=== PATIENT | female | born 1990 | race Caucasian/White ===

== ENCOUNTER 2018-06-28 00:10 | Emergency (ER) | payer OTHER, SELFPAY ==
[2018-06-28 00:15] VITALS: BP 104/68; PULSE 69; RESP 18; TEMP 36.7; O2SAT 97; BMI 25.9
--- NOTE | 2018-06-28 00:18 | ED.RN ---
PT REPORTS PRESSURE IN CHEST ALL DAY TODAY. THIS RN CALLED FOR EKG. MONITOR PLACED.
[2018-06-28 00:19] VITALS: O2SAT 98
--- NOTE | 2018-06-28 00:28 | EKG12_ITS ---
Test Reason : Blood Pressure : / mmHG Vent. Rate : 069 BPM Atrial Rate : 069 BPM P-R Int : 152 ms QRS Dur : 084 ms QT Int : 386 ms P-R-T Axes : 064 074 048 degrees QTc Int : 413 ms Normal sinus rhythm Normal ECG Confirmed by EUGENIA DEAL, ROLANDO ([id number]), editor in chief CARA HIGGINS ([id number] on 06/28/2018 10:04:35 AM Referred By: ADARSH Confirmed By:ROLANDO BELLO MD
--- NOTE | 2018-06-28 00:28 | RAD_ITS ---
STUDY: X-RAY CHEST REASON FOR EXAM: Female, 27 years old. Cough and chest pressure TECHNIQUE: PA and lateral views of the chest. COMPARISON: 08/14/2017 FINDINGS: The lungs are clear and expanded. There is no demonstrated pleural abnormality. Normal size heart. Normal mediastinum and jose. Normal visualized pulmonary arteries. Normal visualized aortic arch and descending thoracic aorta. Normal visualized thoracic spine. Normal visualized ribs, clavicles, and shoulders. There is no demonstrated abnormality of the visualized soft tissue structures of the upper abdomen. RAD/Chest PA and Lateral IMPRESSION: Normal x-ray examination of the chest. Electronically Signed: Guilherme Rubio MD at 2:19 EDT Tel , Service support ,
--- NOTE | 2018-06-28 00:31 | ED.VISSUMM ---
- ER Visit Summary Date of Service: 06/28/18 Chief Complaint: Cough, left rib pain History of Present Illness: The patient is a 27 F with cough for the past 2 months. She had been having a dry cough but it is now becoming more productive of white to yellow sputum. She denies fever or chills. She presents today because of sharp left lower rib pain for the past 2 days. She does note some central chest heaviness tonight as well. She does report ill contacts in her family with similar symptoms. Physical Examination: Vital signs are normal. Patient sitting upright in bed no acute distress. Head neck examination is normal. Heart is regular rate and rhythm. Lung sounds are clear. She does have reproducible tenderness of the left anterior lower ribs and posteriorly or over the inferior left ribs. Abdomen is soft and nontender. Skin examination reveals no rash or lesions. Test Results: EKG is sinus at 69 with no sign of acute ischemia. CBC and chemistry studies are normal. Troponin is negative. D-dimer is normal. test negative. Two-view chest x-ray per my read is unremarkable with no evidence of infiltrate. There is no obvious displaced rib fracture. Emergency Department Course and Treatment: Patient was given IV fluids and Toradol. On repeat evaluation she is resting comfortably. I discussed test results with her. She will be treated with a course of Zithromax in light of the fact that she has had this cough for 2 months. She will be given Tessalon Perles and naproxen as well. Treatment Plan: [] Disposition: Discharge Impression: 1. Bronchitis 2. Left chest wall strain This note was generated with [employer] dictation software. It may contain incorrect words, spelling, and punctuation that were not noted in review of the chart prior to signing ED Disposition - Plan for ED Patient: Chief Complaint: Cough Referrals: Care Physician,No Primary [NON-STAFF] -
[2018-06-28] MEDS: Ketorolac 30 MG/ML Syringe IV (00:48)
[2018-06-28] MEDS: 0.9% Normal Saline 1,000 ML 150 ML IV (00:48)
[2018-06-28 00:56] LABS: Absolute Lymphocyte Count 3.36 X10^3/ul (0.83-4.51); Absolute Neutrophil Count 3.7 X10^3/uL (2.0-7.7); Basophil# 0.03 X10^3/uL; Basophil% 0.4 % (0-1); Eosinophil# 0.24 X10^3/uL; Hematocrit 36.1 % (37-47); Hemoglobin 12.3 g/dl (12.0-15.0); Lymphocyte # 3.36 X10^3/ul (4.0); Lymphocyte % 42.1 % (19-41); Mean Corp Hgb Conc 34.1 g/gl (32-36); Mean Corpuscular Hgb 31.7 pg (27.0-32.0); Mean Platelet Vol. 10.3 fl (6.2-12.0); Monocyte# 0.69 X10^3/uL; Monocyte% 8.6 % (0-10); Neutrophil # 3.67 X10^3/uL (2.7-7.7); Neutrophil % 45.9 % (47-70); Platelet Count 258 K/mm3 (150-450); RBC Distribution Width SD 39.9 fl (35.1-43.9); Red Blood Count 3.88 M/mm3 (4.2-5.4)
[2018-06-28 00:57] LABS: POSITIVE COUNT NO; POSITIVE DIFFERENTIAL NO; POSITIVE MORPHOLOGY NO
[2018-06-28 01:07] LABS: D-Dimer Quantitative (DVT/PE) 0.46 FEU/ug/m (0.27-0.49)
[2018-06-28 01:13] LABS: BUN 15 mg/dL (7-18); BUN/Creat Ratio 21.3 RATIO (10-20); Calcium,Total 8.4 mg/dL (8.5-10.1); Chloride 106 mmol/L (98-107); EST Glomerular Filtration Rate 106 mL/min (>60); Est Glom Filt Rate - Afr Amer 128 mL/min (>60); Estimated Creatinine Clearance 99.86 ml/min; Glucose 93 mg/dL (74-106); Potassium 3.8 mmol/L (3.5-5.1); Sodium Level 140 mmol/L (136-145)
[2018-06-28 01:14] LABS: Anion Gap 4 (5-15)
[2018-06-28 01:42] LABS: Pregnancy, Serum, hCG Quali. NEGATIVE Negative (0-9 Nonpreg)
--- NOTE | 2018-06-28 01:57 | ED.DEP ---
ED Disposition - Plan for ED Patient: Disposition: Home or Assisted Living Chief Complaint: Cough Instructions: Acute Bronchitis, ED Strain Chest Wall Prescriptions: Azithromycin [Zithromax] 250 mg PO DAILY #4 tablet Benzonatate [Tessalon Perle] 200 mg PO TID PRN PRN #20 capsule PRN Reason: Cough Naproxen [Naprosyn] 500 mg PO BID PRN PRN #20 tablet PRN Reason: Pain Referrals: Darius Carreon III, MD [STAFF PHYSICIAN] - As Needed
[2018-06-28] MEDS: Azithromycin 250 MG Tablet 500 MG PO (02:07)
[2018-06-28] MEDS: Benzonatate 100 MG Capsule 200 MG PO (02:07)
[2018-06-28 02:12] VITALS: BP 104/67; PULSE 74; RESP 15; O2SAT 99
--- NOTE | 2018-06-28 02:13 | ED.RN ---
PT GIVEN WRITTEN AND VERBAL DISCHARGE INSTRUCTIONS AND HOME GOING PRESCRIPTIONS. PT VERBALIZES UNDERSTANDING AND DENIES ANY FURTHER QUESTIONS. PT IV D/C AND COVERED WITH 2X2 GAUZE AND PAPER TAPE. PT DRESSES SELF AND AMBULATES OUT OF DEPT BY SELF.
--- NOTE | 2018-06-29 14:38 | CM.ED ---
ED CALLBACK: Follow-up call placed to the patient. Patient states I'm doing good and states that she has received her prescriptions and is taking them. Patient denies any questions or needs.
== END 2018-06-28 02:14 | disposition home or self-care (01) ==
PROVIDERS: Emergency Provider Emergency Medicine; Family Provider Family Medicine; PCP Family Medicine
DX: J40 Bronchitis, not specified as acute or chronic (principal); S29.011A Strain of muscle and tendon of front wall of thorax, initial encounter; X58.XXXA Exposure to other specified factors, initial encounter; Y93.89 Activity, other specified; Y92.89 Other specified places as the place of occurrence of the external cause; Y99.8 Other external cause status
CPT/HCPCS: 71046; 80048; 84484; 84703; 85025; 85379; 93005; 96361; 96374; 99285; J7030; A4216

== ENCOUNTER 2020-04-04 09:27 | Day surgery (SDC) | payer OTHER, SELFPAY ==
--- NOTE | 2020-04-01 12:59 | PCM.HPOB.BLA ---
- Problem List (1) Sterilization Status: Acute History and Physical Date of Admission: 04/04/20 DATE OF SERVICE: March 29, 2020 ? PROBLEM:?Multiparous patient, desires permanent sterilization ? DIAGNOSIS:?As above ? PAST SURGICAL HISTORY:? PAST SURGICAL HISTORY PAST SURGICAL HISTORY Procedure Laterality Date ? APPENDECTOMY ? ? ? REMOVAL OF TONSILS,<12 Y/O ? ? ? Tonsillectomy ? PAST MEDICAL HISTORY:? PAST MEDICAL HISTORY PAST MEDICAL HISTORY Diagnosis Date ? Anemia ? ? depression ? ? Rh negative state in antepartum period ? ? Viral pneumonia, unspecified 1994 ? Pneumonia ? SUBJECTIVE:?Has IUD in place. Currently with 2 children. ? Pelvic US: RESULT: Uterus size: 7.5 x 5.3 x 4.0 cm ?-Orientation: Anteverted. ?-Myometrium: Normal sonographic appearance. ?No focal myometrial abnormality. ?-Endometrial echo complex: Homogeneous measuring 2.7 mm transvaginally. ?IUD is seen within the endometrial canal at the level the fundus/body. ?-Cervix: normal Right ovary: 3.2 x 2.2 x 1.5 cm. ???Normal sonographic appearance. There are normal follicular changes. Arterial and venous vascular flow is identified. Left ovary: 3.2 x 1.9 x 1.8 cm. ???Normal sonographic appearance. There are normal follicular changes with a normal dominant follicle within the left ovary. Arterial and venous vascular flow is identified. Free fluid: None ? SOCIAL HISTORY:? SOCIAL HISTORY Social History ? Tobacco Use ? Smoking status: Current Some Day Smoker ? ? Packs/day: 0.30 ? Smokeless tobacco: Never Used Substance Use Topics ? Alcohol use: Yes ? ? Frequency: 2-3 times a week ? ? Binge frequency: Weekly ? ? Comment: OCCASIONALLY ? Drug use: No ? ALLERGIES ALLERGIES Allergen Reactions ? Codeine ? Other: See Comments ? ? PT AVOIDS DUE TO POSSIBLE APPENDICITIS POSSIBLY RELATED TO CODEINE INTAKE- has taken since with no reaction Current Outpatient Medications on File Prior to Visit Medication Sig ? venlafaxine XR (EFFEXOR XR) 75 mg tr24 Take by mouth once daily. ? levonorgestrel (MIRENA) 20 mcg/24 hr (5 years) IUD Inserted in office No current facility-administered medications on file prior to visit.? ? ? OBJECTIVE: ? VITALS:? BP 100/64 ? Pulse 70 ? Resp 16 ? Ht 5' 2 (1.575 m) ? Wt 139 lb (63 kg) ? LMP 04/29/2016 ? BMI 25.42 kg/m? ? HEENT: ?Normocephalic, atraumatic, Mucus membranes moist without lesions. ? NECK: ???Soft and Supple. ?No adenopathy , thyromegaly or bruits. ? SKIN: No lesions. ? CHEST: Clear to auscultation. ?No wheezes or rales. ?Good air exchange. ? HEART: Regular rate and rhythm ?No S3 or S4. ?No gallops or rubs. ? BACK: Nontender with no CVA tenderness. ? ABDOMEN: Soft, non-tender, non-distended, no masses, no hepatosplenomegaly. ? LOWER EXTREMITIES: There was no pitting edema, no palpable cords and no skin changes. ? ? ? ASSESSMENT:?Desires permanent sterilization ? PLAN: 1)?Discussed laparoscopic bilateral salpingectomy and IUD removal. Reviewed risk of regret. Discussed all other options for control. The patient states she is 100% certain that she does not want more children in the future. Also discussed once IUD is removed can have irregular menses and/or menorrhagia.?The rationale for the proposed surgery was discussed in addition to risks, benefits, and alternatives. ?General pre- and post-operative care was reviewed. ?Questions were answered. ?After discussion, the patient indicated a desire to proceed with the planned surgery. ? Brittanie Foote,?DO
--- NOTE | 2020-04-04 | FALS_PTH ---
PATIENT: JAYRO PEREZ [place] [facility] [id number] AGE/SX: 29/F ROOM: RE04/04/[address]: Dr. Brittanie Foote DO : 1990 BED: DIS: 04/04/2020 SPEC #: [id number] RECD: 04/04/20 13:12 STATUS: LILLY DAVID #: [id number] SANTO: 04/04/20 00:[address]: Brittanie Foote DEPT: SURGICAL PATHOLOGY RECD BY: Guilherme Harper ENTERED: 04/05/20 07:40 SP TYPE: FALL TUBES OTHR DR: Dr. Fadi Colvin MD Tissues: Fallopian tube Procedures: Surgery Specimen Level II HEADER OPERATION: Laparoscopic salpingectomy, IUD removal PRE-OP DIAGNOSIS: Sterilization; multiparous TISSUE SUBMITTED: Bilateral fallopian tubes MICROSCOPIC DIAGNOSIS Right and left fallopian tubes, bilateral salpingectomies: Two complete segments of fallopian tubes with no pathologic change. AM:raven 04/08/20 MICROSCOPIC DESCRIPTION Slides are reviewed. GROSS DESCRIPTION Received in fixative is one container labeled with the patient's name and designated bilateral fallopian tubes. The specimen consists of two fallopian tubes with an average length of 6.5 cm and has an average diameter of 0.7 cm. Both fallopian tubes have normal fimbriated ends. No mass lesions are identified. Edge Grinder sections are submitted in two cassettes as follows: 1 - one fallopian tube, 2??the other fallopian tube. / AM:raven 04/05/20 TC:4 CPT: 01967 x2
[2020-04-04 10:06] LABS: Hematocrit 43.3 % (37-47); Hemoglobin 14.1 g/dL (12.0-15.0); Mean Corp Hgb Conc 32.6 g/dL (32-36); Mean Corpuscular Hgb 31.5 pg (27.0-32.0); Mean Corpuscular Volume 96.9 fL (81-99); Platelet Count 225 K/mm3 (150-450); RBC Distribution Width CV 12.3 % (11.6-14.6); RBC Distribution Width SD 43.2 fl (35.1-43.9); Red Blood Count 4.47 M/mm3 (4.2-5.4)
[2020-04-04 10:19] VITALS: BP 112/73; PULSE 80; RESP 15; TEMP 36.8; O2SAT 100; BMI 25.7
[2020-04-04 10:24] LABS: Internal QC Validated? YES +Cl - CLEAR BKGD; Pregnancy, Urine Negative Negative
[2020-04-04] MEDS: Lactated Ringers 1,000 ML 100 ML IV (10:30)
--- NOTE | 2020-04-04 10:50 | PCM.OPRPT ---
Problem List (1) Sterilization Status: Acute (2) Multiparous Status: Acute Report of Operation Date of Procedure: 04/04/20 Pre-Operative Diagnosis: Desires permanent sterilization, multiparous patient Post-Operative Diagnosis: As above Surgery/Procedure Performed:: Laparoscopic bilateral salpingectomy, removal of IUD Description of Surgical Findings:: Normal appearing uterus, bilateral tubes, bilateral ovaries. Normal appearing pelvis Type of Anesthesia:: General Special Medications: None Specimen's removed: Bilateral fallopian tubes, IUD intact Drains: None Estimated Blood Loss (mL): 10 Fluids Replaced: 800 Description of Procedure: The patient was taken to the operating room, and prepped and draped in the dorsal lithotomy position in [facility] stirps. General anesthesia induced. Below a weighted speculum was placed in the vagina to expose the cervix. The anterior lip of the cervix was grasped with a single-tooth tenaculum. A ring forcep was used to grasp the IUD strings and IUD was removed without difficulty and noted to be intact. A uterine manipulator was placed. Gloves were then changed and attention was turned to the abdominal portion of the case. Local was injected at all port sites. An incision was made below the umbilicus to accommodate a 5 mm port. The 5 mm port was placed under direct visualization with the laparoscope. Once confirmed intraperitoneal, CO2 insufflation was initiated. The pelvis was inspected and findings were noted as above. A left lateral 5 mm port was placed. A right lateral 5 mm port was placed. The left fallopian tube was elevated out of the pelvis and followed out to the fimbriated end. Using the LigaSure device the mesosalpinx was serially clamped, cauterized, and cut until the uterine cornua was reached. At that point the left fallopian tube was transected. The fallopian tube was removed and sent to pathology for review. The same was performed on the right to the right fallopian tube, which was also sent to pathology for review. Hemostasis was noted. All ports were removed and the abdomen was exsufflated. The incisions were closed with Monocryl in a subcuticular fashion, and glue was placed over the incisions. From below all instruments were removed from the vagina and a vaginal sweep was performed. Instrument, sponge, needle counts were correct. The patient tolerated procedure well and was taken to the recovery room in stable condition. Grafts/Implants Used: None - Complications None - Admit VTE Documentation VTE Present on Admission: No VTE Mechan Device Prophylaxis: SCD's
--- NOTE | 2020-04-04 10:56 | PCM.DC ---
- Discharge Diagnoses Current Active Problems: Current Active and Chronic Problems Multiparous (Acute) You will use the following diet at home:: No restrictions Your food should be the consistency of: Regular Discharge Activity: May not drive while taking narcotic pain medications., May Shower, May Take a Tub Bath - once the vaginal bleeding stops May resume sexual activity in: 1-2 weeks - once bleeding stops Ice area for (Minutes): 15 Weight Bearing Status: Weight bearing as tolerated Lifting Restrictions: No lifting greater than 5-10 pounds for 4 weeks Call your doctor if your incision/area has: Sudden Increased Bleeding, Increased Pain/ Swelling, Increased Redness, Foul Smelling Discharge, Swelling at the incision site Call your doctor if you observe: Fever of 101 or Higher, Inability to urinate, Inability to have a bowel movement, Using more than one pad per hour, Shortness of breath, Dizziness, Fainting spells, Chest pain, Increased palpitations (irregular heartbeat), Calf discomfort, Uncontrolled pain Suture Line Care: Avoid Pulling/Pushing, Avoid Pinching/Bending Cleanse incision/area with: Soap & Water Allergies/Adverse Reactions: Allergies No Known Allergies Allergy (Verified 04/04/20 10:18) Medications to take at Discharge Venlafaxine HCl [Effexor Xr] 75 mg PO DAILY 03/26/20 Orders to be completed after discharge: Type & Screen - PAT ONLY Time Frame: 04/04/20, Facility: [facility], Location: Laboratory Primary Care Physician: Fdai Colvin MD [Primary Care Provider] - Test Results: Test results from this visit will be discussed in further detail at your follow-up appointment, if applicable. Please Follow Up With: Brittanie Foote DO When: 1-2 weeks
[2020-04-04] MEDS: Bupivacaine Mpf 0.5% 30 ML VIAL (11:40)
[2020-04-04 12:10] VITALS: BP 112/73; BP 92/48; PULSE 92; RESP 16; TEMP 36.2; O2SAT 92
[2020-04-04 12:15] VITALS: BP 102/87; BP 112/73; PULSE 73; RESP 16; O2SAT 98
[2020-04-04 12:30] VITALS: BP 112/73; BP 92/57; PULSE 67; RESP 18; O2SAT 100
[2020-04-04 12:40] VITALS: BP 101/73; BP 112/73; PULSE 64; RESP 18; TEMP 36.2; O2SAT 100
[2020-04-04] MEDS: HYDROcodone Bitartrate/Apap 5/325 Tablet PO (13:15)
[2020-04-04 13:47] VITALS: BP 108/81; BP 112/73; PULSE 90; RESP 18; TEMP 36.1; O2SAT 100
== END 2020-04-04 13:53 | disposition home or self-care (01) ==
LOC: SDC 09:28 → AC 09:29
PROVIDERS: Anesthesiology; PCP Family Medicine; Referring Provider Obstetrics & Gynecology; Visit Provider Obstetrics & Gynecology
PROC: (CPT 58661; principal; 2020-04-04 11:00)
DX: Z30.2 Encounter for sterilization (principal); Z30.432 Encounter for removal of intrauterine contraceptive device; Z11.59 Encounter for screening for other viral diseases; F32.9 Major depressive disorder, single episode, unspecified; F41.9 Anxiety disorder, unspecified; F17.210 Nicotine dependence, cigarettes, uncomplicated; Z79.899 Other long term (current) drug therapy
CPT/HCPCS: 58301; 58661; 36415; 81025; 85027; 86850; 86900; 86901; 87635; 88302; 94799; J7120; A4216; J2405; U0003

== ENCOUNTER → 2020-09-10 22:20 | Outpatient (CLI) | payer SELFPAY ==
[2020-09-10 23:41] LABS: Probe Check PASS; Specimen Processing Control PASS
== END ==
LOC: EMPH 09-11 09:57 → LABSPEC 09-11 14:01
PROVIDERS: PCP Family Medicine; Visit Provider Internal Medicine Infectious Disease
DX: Z20.822 Contact with and (suspected) exposure to COVID-19 (principal)
CPT/HCPCS: 87635; U0002

== ENCOUNTER 2022-04-30 19:59 | Emergency (ER) | payer BC, SELFPAY ==
[2022-04-30 20:00] VITALS: BP 126/84; PULSE 99; RESP 16; TEMP 36.7; O2SAT 97; BMI 27.8
[2022-04-30 20:01] VITALS: BP 126/84; PULSE 99; RESP 16; TEMP 36.7; O2SAT 97
[2022-04-30 20:19] LABS: Mucous, Urine 0 SEEN /hpf (<or=2+)
[2022-04-30 20:20] LABS: Color, Urine Straw (Yellow); Glucose, Dipstick Normal (Normal); Ketone-Dipstick Negative (Negative); Leukocyte Esterase-Dipstick 500 /ul (Negative); Nitrite-Dipstick Negative (Negative); Occult Blood-Urine 50 /ul (Negative); Protein-Dipstick Negative (Negative); Urine Bilirubin Dipstick Negative (Negative); Urine Clarity Clear (Clear); Urine Urobilinogen Normal (Normal); Urine pH 6.5 (5.0 - 8.0)
--- NOTE | 2022-04-30 20:53 | CT_ITS ---
STUDY: CT ABDOMEN AND PELVIS WITHOUT CONTRAST REASON FOR EXAM: Female, 31 years old. Kidney Stone RADIATION DOSAGE (If Supplied By Facility): CTDIvol = ( 6.50 ) mGy, DLP = ( 310.15 ) mGycm TECHNIQUE: Transaxial images were obtained from the dome of the diaphragm to the symphysis pubis without oral contrast, and without intravenous contrast. Sagittal and coronal images were reconstructed. Individualized dose optimization techniques were used for this CT. COMPARISON: None. FINDINGS: LOWER CHEST: Normal. LIVER: Normal. GALLBLADDER/BILE DUCTS: Normal. PANCREAS: Normal. SPLEEN: Normal. ADRENAL GLANDS: Normal. KIDNEYS/URETERS/BLADDER: Normal. RETROPERITONEUM/AORTA: Normal. BOWEL/MESENTERY: Mild increased stool. No bowel dilatation or bowel wall thickening. APPENDIX: Status post appendectomy. PERITONEUM: Normal. REPRODUCTIVE ORGANS: Normal. BONES/SOFT TISSUES: No acute abnormality. OTHER: None. CT/Abdomen/Pelvis without Cont IMPRESSION: 1. No bowel dilatation or bowel wall thickening. 2. Mild increased stool. 3. No hydroureteronephrosis or radiopaque nephrolithiasis. Electronically Signed: Maciej Garcia MD at 22:24 EDT ,
[2022-04-30 20:55] LABS: Amorphous Sediment 1+ URATE; Bacteria 1+ /hpf (None Seen); Red Blood Cells-Urine 5-10 SEEN /hpf (0-5); Squamous Epithelial Cells - UA 0-5 SEEN /hpf (5-10); White Blood Cells >100 SEEN /hpf (0-5)
--- NOTE | 2022-04-30 20:55 | EDS_ITS ---
HPI History of Present Illness Chief Complaint: Flank Pain Informant: patient Narrative Narrative: Sent from urgent care for concerns of kidney stones. Lower abdominal pain started yesterday rating to left flank. This morning blood in urine. No dysuria. Frequency however increase fluid intake. Ibuprofen taken yesterday. No history of kidney stones. No history gastric ulcers or kidney injury. Menstrual period last time 2 weeks ago. Currently nauseated. There is no vomiting. Did not take any medications today. Prior similar symptoms: No PFSH PFSH Medical History Anxiety Depression Home Medications bupropion HCl 100 mg tablet,12 hr sustained-release mg PO 04/30/22 [History Last Taken Unknown] cephalexin 500 mg capsule 500 mg PO TID #21 caps 04/30/22 [Rx Last Taken Unknown] famciclovir 250 mg tablet mg 04/30/22 [History Last Taken Unknown] ondansetron 4 mg disintegrating tablet 4 mg PO Q6H PRN nausea and vomiting #20 tabs 04/30/22 [Rx Last Taken Unknown] Allergy/AdvReac Type Severity Reaction Status Date / Time No Known Allergies Allergy Verified 04/30/22 20:02 Social History Smoking Status: Light Smoker (<10/day) ROS ROS ED Constitutional Constitutional ED: Denies chills, fever(s) or sweats Eyes Eyes: Denies change in vision ENT ENT ED: Denies dysphagia or sore throat Cardiovascular Cardiovascular: Denies chest pain, leg edema, palpitations or racing heartbeat Respiratory/Chest Respiratory/Chest: Denies cough, dyspnea or dyspnea on exertion Gastrointestinal Gastrointestinal: Reports nausea; Denies abdominal pain, diarrhea or vomiting Genitourinary Genitourinary ED: Denies dysuria, hematuria or urinary frequency Musculoskeletal Musculoskeletal: Reports back pain; Denies extremity pain or neck pain Integumentary Denies rash or wounds Neurologic Neurologic: Denies headache(s), paresthesias or weakness EXAM Physical Exam Const Vital Signs: 04/30/22 20:00 04/30/22 20:01 04/30/22 22:00 Temperature 98.1 F 98.1 F Temperature Source Temporal Temporal Pulse Rate 99 99 Respiratory Rate 16 16 17 Blood Pressure 126/84 H 126/84 H Blood Pressure Mean 98 98 Pulse Ox 97 97 Oxygen Delivery Method Room Air Room Air Room Air 04/30/22 22:45 Temperature Temperature Source Pulse Rate 84 Respiratory Rate 18 Blood Pressure 118/71 Blood Pressure Mean Pulse Ox 95 Oxygen Delivery Method Positive well nourished and well developed General Appearance ED: well developed and NAD HEENT Reports moist mucous membranes normocephalic and atraumatic Eyes PERRL, EOMs intact bilaterally and conjunctivae normal General Eye ED: Yes normal appearance of both eyes Neck no lymphadenopathy and supple General: Negative for tenderness Chest Wall Chest: Negative for tenderness Resp normal respiratory effort and normal air movement Effort and Inspection: symmetric chest movement; Negative for respiratory distress Cardio regular rate, regular rhythm and no murmurs Peripheral Pulses: pulses 2+ throughout GI normal to inspection, nondistended, normoactive bowel sounds and non-tender Palpation: Negative for guarding or rebound tenderness present Back/Spine no CVA tenderness and no thoracic nor lumbar tenderness Back/Spine Narrative: No rash. Extremity normal to inspection General Extremety ED: Negative for edema or tenderness General Extremity: Negative for edema Neuro oriented x3 and no sensory deficits noted Sensorium / Orientation: awake and alert Skin no rashes or lesions noted and no wounds MDM MDM MDM Narrative Medical decision making narrative: Patient nontoxic. Treated with IV Toradol labs stable urine noted infection with hematuria. CT scan negative for any obstructive uropathy. She is given Rocephin IV she is treated for complicated UTI. Meds to bed with Keflex and Zofran. She has ibuprofen at home. All questions were answered. Lab Data Attestation: I reviewed the patient's lab results. Labs: Laboratory Results - last 24 hr 04/30/22 04/30/22 04/30/22 20:12 20:12 21:00 WBC 10.4 RBC 4.08 L Hgb 13.2 Hct 38.6 MCV 94.6 MCH 32.4 H MCHC 34.2 RDW Std Deviation 41.6 RDW Coeff of Nikki 12.0 Plt Count 259 MPV 9.9 Immature Gran % (Auto) 0.200 Neut % (Auto) 62.2 Lymph % (Auto) 27.0 [place] % (Auto) 9.3 Eos % (Auto) 0.9 Baso % (Auto) 0.4 Absolute Neuts (auto) 6.5 Absolute Lymphs (auto) 2.82 Nucleated RBC % 0 Sodium Potassium Chloride Carbon Dioxide Anion Gap BUN Creatinine Estim Creat Clear Calc Est GFR (MDRD) Af Amer Est GFR (MDRD) Non-Af BUN/Creatinine Ratio Glucose Calcium Urine Color Straw Urine Clarity Clear Urine pH 6.5 Ur Specific [place] 1.010 Urine Protein Negative Urine Glucose (UA) Normal Urine Ketones Negative Urine Occult Blood 50 H Urine Nitrite Negative Urine Bilirubin Negative Urine Urobilinogen Normal Ur Leukocyte Esterase 500 H Urine RBC 5-10 SEEN Urine WBC >100 SEEN Ur Squamous Epith Cells 0-5 SEEN Amorphous Sediment 1+ URATE Urine Bacteria 1+ Urine Mucus 0 SEEN Urine Test Negative 04/30/22 21:00 WBC RBC Hgb Hct MCV MCH MCHC RDW Std Deviation RDW Coeff of Nikki Plt Count MPV Immature Gran % (Auto) Neut % (Auto) Lymph % (Auto) [place] % (Auto) Eos % (Auto) Baso % (Auto) Absolute Neuts (auto) Absolute Lymphs (auto) Nucleated RBC % Sodium 139 Potassium 3.6 Chloride 105 Carbon Dioxide 28.0 Anion Gap 6 BUN 9 Creatinine 0.82 Estim Creat Clear Calc 78.62 Est GFR (MDRD) Af Amer 104 Est GFR (MDRD) Non-Af 86 BUN/Creatinine Ratio 11.0 Glucose 95 Calcium 9.2 Urine Color Urine Clarity Urine pH Ur Specific [place] Urine Protein Urine Glucose (UA) Urine Ketones Urine Occult Blood Urine Nitrite Urine Bilirubin Urine Urobilinogen Ur Leukocyte Esterase Urine RBC Urine WBC Ur Squamous Epith Cells Amorphous Sediment Urine Bacteria Urine Mucus Urine Test Radiography Diagnostic Testing: Clinical Impression(s) from Imaging Studies Abdomen/Pelvis CT 04/30/22 20:53 IMPRESSION: 1. No bowel dilatation or bowel wall thickening. 2. Mild increased stool. 3. No hydroureteronephrosis or radiopaque nephrolithiasis. Electronically Signed: Maciej Garcia MD at 22:24 EDT , Discharge Plan Triage Chief Complaint: Flank Pain ED Provider: Nazario Allen Dx/Rx/DC Orders Clinical Impression: Complicated UTI (urinary tract infection), Hematuria, Left flank pain Instructions: ED Pyelonephritis, Female (Adult) Prescriptions: New cephalexin [cephalexin] 500 mg capsule 500 mg PO TID Qty: 21 0RF ondansetron 4 mg tablet,disintegrating 4 mg PO Q6H PRN (Reason: nausea and vomiting) Qty: 20 0RF No Action bupropion HCl 100 mg tablet sustained-release 12 hr PO famciclovir 250 mg tablet Label Comments: TAKE 1 TABLET BY MOUTH TWICE DAILY Primary Care Provider: Fadi Colvin Referrals: Fadi Colvin MD [Primary Care Provider] - 1 Week Activity Restrictions/Additional Instructions: CT scan abdomen and pelvis negative for acute process. Urine with infection. Take antibiotic as prescribed. Ibuprofen 600 mg every 6 hours as needed. Disposition Disposition: Home, Self Care Discharge Date/Time: 04/30/22 23:07
[2022-04-30 21:11] LABS: Absolute Lymphocyte Count 2.82 X10^3/uL (0.83-4.51); Absolute Neutrophil Count 6.5 X10^3/uL (2.0-7.7); Basophil# 0.04 X10^3/uL; Basophil% 0.4 % (0-1); Eosinophil# 0.09 X10^3/uL; Eosinophils% 0.9 % (0-5); Hematocrit 38.6 % (37-47); Hemoglobin 13.2 g/dL (12.0-15.0); Lymphocyte # 2.82 X10^3/ul (0.83-4.51); Mean Corp Hgb Conc 34.2 g/dL (32-36); Mean Corpuscular Hgb 32.4 pg (27.0-32.0); Mean Corpuscular Volume 94.6 fL (81-99); Mean Platelet Vol. 9.9 fl (6.2-12.0); Monocyte# 0.97 X10^3/uL; Monocyte% 9.3 % (0-10); NRBC Flagged by Analyzer 0 % (0-5); Neutrophil % 62.2 % (47-70); Platelet Count 259 K/mm3 (150-450); RBC Distribution Width SD 41.6 fl (35.1-43.9); Red Blood Count 4.08 M/mm3 (4.2-5.4); White Blood Count 10.4 K/mm3 (4.4-11.0)
[2022-04-30] MEDS: Ondansetron 4 MG/2 ML Vial IV (21:14)
[2022-04-30] MEDS: 0.9% Normal Saline 1,000 ML 1000 ML IV (21:14)
[2022-04-30] MEDS: Ketorolac 15 MG/ML Vial IV (21:15)
[2022-04-30 21:24] LABS: Internal QC Validated? YES +Cl - CLEAR BKGD
[2022-04-30 21:25] LABS: Pregnancy, Urine Negative Negative
[2022-04-30 22:00] VITALS: RESP 17
[2022-04-30] MEDS: Ceftriaxone 1 GM/50 ML BAG IV (22:11)
[2022-04-30 22:15] LABS: Anion Gap 6 (5-15); BUN 9 mg/dL (7-18); Calcium,Total 9.2 mg/dL (8.5-10.1); Chloride 105 mmol/L (98-107); Creatinine, Serum 0.82 mg/dL (0.55-1.02); EST Glomerular Filtration Rate 86 mL/min (>60); Est Glom Filt Rate - Afr Amer 104 mL/min (>60); Estimated Creatinine Clearance 78.62 ml/min; Glucose 95 mg/dL (74-106); Potassium 3.6 mmol/L (3.5-5.1); Sodium Level 139 mmol/L (136-145)
[2022-04-30 22:45] VITALS: BP 118/71; PULSE 84; RESP 18; O2SAT 95
== END 2022-04-30 23:07 | disposition home or self-care (01) ==
PROVIDERS: Emergency Provider Emergency Medicine; PCP Family Medicine; Visit Provider Emergency Medicine
DX: N39.0 Urinary tract infection, site not specified (principal); R31.9 Hematuria, unspecified; F17.200 Nicotine dependence, unspecified, uncomplicated; F41.9 Anxiety disorder, unspecified; F32.A Depression, unspecified; Z79.899 Other long term (current) drug therapy
CPT/HCPCS: 74176; 80048; 81001; 81025; 85025; 87077; 87086; 87088; 87186; 96361; 96365; 96375; 99283; J7030; A4216; J2405